=== PATIENT | male | born 1960 | race Caucasian/White ===

== ENCOUNTER → 2016-07-01 | Outpatient (CLI) | payer BC ==
--- NOTE | 2016-07-01 09:54 | RAD ---
Left lower extremity, bone length evaluation, 07/01/2016: History: Surgical planning for knee replacement Limited AP standing views of the femur and left lower leg were obtained with markers in place on the skin surface laterally to facilitate preoperative measurements. The limited exam demonstrates severe narrowing of the left knee joint with marginal spurring and subchondral sclerosis. There is lateral subluxation of the tibia relative to the distal femur.
--- NOTE | 2016-07-01 12:25 | RAD ---
MR of the left knee - Wang and Nephew protocol History: Chronic left knee pain. Preoperative planning. Technique: Sequences are obtained in accordance with the Wang and nephew protocol. 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 There is a complex small to moderate joint effusion. Small Nuñez cyst. Severe primary osteoarthritis. Medial meniscal tear. Probable lateral meniscal tear. Poorly visualized anterior cruciate ligament. Electronically signed by: Aurelio Townsend MD (Jul 01, 2016 12:24:13)
== END | disposition home or self-care (01) ==
LOC: RAD 12:32
PROVIDERS: ATTEND Orthopaedic Surgery Sports Medicine
DX: M17.12 Unilateral primary osteoarthritis, left knee (principal)
CPT/HCPCS: 73721; 77073

== ENCOUNTER → 2016-07-14 | Outpatient (CLI) | payer BC ==
[~2016-07-14] MED LIST: ALLO300T PO; CELE-20 PO; IRBE150T3 PO; RIVA20TA2 PO; TADA2.5T PO; TEST1.25 TD
[2016-07-14 09:46] LABS: ALBUMIN 3.7 g/dL (3.4-5.0); CALCIUM 8.6 mg/dL (8.5-10.1); CREATININE 1.1 mg/dL (0.7-1.3); GFR 68.8; POTASSIUM 4.2 mmol/L (3.5-5.1)
[2016-07-14 09:53] LABS: BASO # 0.1 x10^3/uL (0.0-0.2); BASO % 1 % (0-3); EOS % 2 % (0-3); HEMATOCRIT 46.8 % (39.0-53.0); HEMOGLOBIN 15.5 g/dL (13.0-17.5); LYMPH # 1.7 x10^3/uL (1.0-4.8); LYMPH % 33 % (24-48); MEAN CORPUSCULAR HEMOGLOBIN 32 pg (25-35); MEAN CORPUSCULAR HGB CONC 33 g/dL (31-37); MEAN CORPUSCULAR VOLUME 97 fL (79-100); MONO % 7 % (0-9); NEUT % 57 % (31-73); PLATELET COUNT 195 x10^3/uL (140-400); RED BLOOD COUNT 4.82 x10^6/uL (4.30-5.70); RED CELL DISTRIBUTION WIDTH 15.5 % (11.5-14.5); WHITE BLOOD COUNT 5.3 x10^3/uL (4.0-11.0)
[2016-07-14 10:06] LABS: PROTHROMBIN TIME PATIENT 12.5 SEC (11.7-14.0)
[2016-07-14 11:28] LABS: BILIRUBIN,URINE NEGATIVE (NEG); GLUCOSE,URINE NEGATIVE (NEG); NITRITE,URINE NEGATIVE (NEG); PH,URINE 5.5; PROTEIN,URINE NEGATIVE (NEG-TRACE); UROBILINOGEN,URINE 0.2 mg/dL (0.2 mg/dL)
[2016-07-14 11:48] LABS: BACTERIA,URINE 0 /HPF (0-FEW); RBC,URINE 0 /HPF (0-2); SQUAMOUS EPITHELIAL CELL,UR FEW /LPF; WBC,URINE 0 /HPF (0-4)
--- NOTE | 2016-07-14 12:43 | EKG ---
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
--- NOTE | 2016-07-14 17:11 | RAD ---
PA and lateral chest radiographs 07/14/2016 Clinical history: Preop evaluation prior to left knee replacement. 2 PA and a lateral digital radiographs of the chest were obtained. No previous studies are available for comparison. The cardiac silhouette is normal in size. The thoracic aorta is mildly tortuous. Areas of probable scarring are seen involving both lower lobes. No acute pulmonary infiltrate is seen. No pleural effusion or pneumothorax is noted. Degenerative changes are seen involving the thoracic spine. Impression: No acute abnormality is seen.
== END | disposition home or self-care (01) ==
LOC: SURGPAT 12:20
PROVIDERS: ATTEND Orthopaedic Surgery Sports Medicine
DX: Z01.818 Encounter for other preprocedural examination (principal); I10 Essential (primary) hypertension; M17.12 Unilateral primary osteoarthritis, left knee; M47.894 Other spondylosis, thoracic region
CPT/HCPCS: 36415; 71020; 80048; 81001; 82040; 85027; 85610; 85651; 85730; 87641; 93005

== ENCOUNTER 2016-07-28 05:42 | Inpatient (IN) | payer BC ==
[2016-07-28] VITALS (10 sets, daily range): BP systolic 113–136; BP diastolic 66–84
[~2016-07-28] VITALS: Ht 180.3 cm; Wt 136.1 kg
[2016-07-28] MEDS ORDERED: MORPHINE SULFATE 5 MG, KETOROLAC TROMETHAMINE 30 MG, ROPIVacaine 0.5% PF 60 ML, EPINEPH... INT ART ONE ×5 (06:00)
[2016-07-28] MEDS ORDERED: CELECOXIB 200 MG CAPSULE. PO PRN (06:00)
[2016-07-28] MEDS: HYDROCODONE/APAP 7.5/325MG TABLET. PO PRN ×3 (06:58→11:08)
[2016-07-28] MEDS ORDERED: fentaNYL PF VIAL 100 MCG/2 ML VIAL IV PRN ×4 (07:00→07:15)
[2016-07-28] MEDS ORDERED: PROCHLORPERAZINE 10 MG/2 ML VIAL. IV PRN ×2 (07:00→07:15)
[2016-07-28] MEDS ORDERED: ONDANSETRON PF 4 MG/2 ML VIAL. IV PRN (07:00)
[2016-07-28] MEDS ORDERED: IV RINGERS,LACTATED 1000ML 1,000 ML IV SCH (07:00)
[2016-07-28] MEDS ORDERED: HYDROmorphone 2 MG/ML VIAL IV PRN (07:00)
[2016-07-28] MEDS ORDERED: MORPHINE SULFATE 2 MG/ML DISP.SYRIN. IV PRN ×2 (07:00→07:15)
[2016-07-28] MEDS ORDERED: LIDOCAINE 1% 1 ML SYRINGE. ID PRN (07:00)
[2016-07-28] MEDS ORDERED: fentaNYL PF VIAL 100 MCG/2 ML VIAL ONE (07:06)
[2016-07-28] MEDS ORDERED: ROCURONIUM 50 MG/5 ML VIAL. ONE (07:06)
[2016-07-28] MEDS ORDERED: LIDOCAINE 2% 100 MG/5 ML SYRINGE. ONE (07:06)
[2016-07-28] MEDS ORDERED: FAMOTIDINE 20 MG/2 ML VIAL ONE (07:07)
[2016-07-28] MEDS ORDERED: PROPOFOL 20 ML IV ONE (07:07)
[2016-07-28] MEDS ORDERED: DEXAMETHASONE SOD PHOS 20 MG/5 ML VIAL. ONE (07:07)
[2016-07-28] MEDS: IV DEXTROSE 5 %-0.45 % NACL 1,000 ML IV SCH ×3 (07:09→16:41)
--- NOTE | 2016-07-28 07:13 | PDOC ---
BRIEF OPERATIVE NOTE Date: Jul 28, 2016 Pre-Op Diagnosis L knee DJD Post-Op Diagnosis same Procedure Performed L TKA Surgeon Bud Ventura Anesthesia Type: General, Local Blood Loss 50mL Complications none SHANICE RONQUILLO II, MD Jul 28, 2016 07:13
[2016-07-28] MEDS ORDERED: MORPHINE SULFATE 10 MG/ML VIAL. IV PRN (07:15)
[2016-07-28] MEDS ORDERED: PROCHLORPERAZINE 5 MG TABLET. PO PRN (07:15)
[2016-07-28] MEDS ORDERED: HYDROCODONE/APAP 7.5/325MG TABLET. PO PRN (07:15)
[2016-07-28] MEDS ORDERED: CALCIUM CARBONATE 500 MG TAB.CHEW PO PRN (07:15)
[2016-07-28] MEDS ORDERED: OXYCODONE/APAP 5/325 TABLET. PO PRN (07:15)
[2016-07-28] MEDS ORDERED: 0.9 % SODIUM CHLORIDE 10 ML DISP.SYRIN. IV PRN (07:15)
[2016-07-28] MEDS ORDERED: METOCLOPRAMIDE HCL 10 MG/2 ML VIAL. IV PRN (07:15)
[2016-07-28] MEDS ORDERED: MORPHINE SULFATE 4 MG/ML DISP.SYRIN. IV PRN ×2 (07:15)
[2016-07-28] MEDS ORDERED: ZOLPIDEM 5 MG TABLET. PO PRN (07:15)
[2016-07-28] MEDS ORDERED: diphenhydrAMINE 50 MG/ML VIAL IV PRN (07:15)
[2016-07-28] MEDS ORDERED: ACETAMINOPHEN 325 MG TABLET. PO PRN (07:15)
[2016-07-28] MEDS ORDERED: DEXTROSE 50% 25 GM / 50ML DISP.SYRIN. IV PRN (07:15)
[2016-07-28] MEDS ORDERED: TRAMADOL 50 MG TABLET. PO PRN ×2 (07:15)
[2016-07-28] MEDS ORDERED: MORPHINE SULFATE 10 MG/ML VIAL. ONE (07:51)
[2016-07-28] MEDS ORDERED: 0.9 % SODIUM CHLORIDE 50 ML VIAL. IJ ONE (07:51)
[2016-07-28] MEDS ORDERED: PHENYLEPHRINE in 0.9% NACL PF 1 MG/10 ML DISP.SYRIN. IV ONE (07:53)
[2016-07-28] MEDS ORDERED: LABETALOL 20 MG/4 ML DISP.SYRIN. ONE (08:01)
[2016-07-28] MEDS ORDERED: hydrALAZINE 20 MG/ML VIAL. ONE (08:16)
[2016-07-28] MEDS ORDERED: GLYCOPYRROLATE 1 MG/5 ML VIAL. ONE (08:59)
[2016-07-28] MEDS ORDERED: NEOSTIGMINE METHYLSULFATE 5 MG/5 ML SYRINGE. ONE (08:59)
[2016-07-28] MEDS ORDERED: ONDANSETRON PF 4 MG/2 ML VIAL. ONE (09:00)
[2016-07-28] MEDS ORDERED: TADALAFIL 2.5 MG PO SCH (09:00)
[2016-07-28] MEDS ORDERED: TESTOSTERONE TD SCH (09:00)
[2016-07-28] MEDS: LOSARTAN POTASSIUM 50 MG TABLET. PO SCH (09:00)
[2016-07-28] MEDS ORDERED: DESFLURANE > 120 MINUTES IH ONE (09:45)
--- NOTE | 2016-07-28 10:32 | RAD ---
Left knee, 2 views, 07/28/2016: History: Postop evaluation A total knee prosthesis has been inserted in satisfactory position. A surgical drain overlie the operative site anteriorly. There is no evidence of a retained surgical instrument, needle or radiopaque sponge on these 2 views. IMPRESSION: No significant postoperative abnormality is detected.
[2016-07-28] MEDS: ALLOPURINOL 300 MG TABLET. PO SCH (12:00)
[2016-07-28] MEDS ORDERED: chlordiazePOXIDE HCL 25 MG CAPSULE PO PRN (12:45)
--- NOTE | 2016-07-28 13:17 | OP ---
DATE OF SURGERY: 07/28/2016 SURGEON: Ajay Ronquillo MD. DIALYSIS NURSE: Gris Ventura. ANESTHESIA: General. PREOPERATIVE DIAGNOSIS: Advanced left knee degenerative joint disease. POSTOPERATIVE DIAGNOSIS: Advanced left knee degenerative joint disease. PROCEDURE PERFORMED: Left total knee arthroplasty. ESTIMATED BLOOD LOSS: 50 mL. TOURNIQUET TIME: 67 minutes. COMPONENTS INSERTED: 1. A Wang and Nephew size-8 left Journey II Oxinium femoral component. 2. A size-6 left Journey nonporous tibial baseplate. 3. An 11-mm thick trial articular insert. 4. A 26-mm biconvex patella. COMPLICATIONS: None. REASON FOR PROCEDURE: The patient is a very pleasant 56-year-old gentleman with advanced and severe left or bilateral degenerative knee joint disease. His left was more painful than his right. He had failed conservative therapy such as injections, anti-inflammatories, and exercise program, and therefore, we had discussion of risks, benefits, and alternatives of proceeding with the above surgery, and he elected to proceed. DESCRIPTION OF PROCEDURE: The patient was greeted in the preoperative area by myself. Correct extremity was marked and verified. He was taken to the Operative Suite, and antibiotics were started en route. Once in the OR, he was transferred gently supine to the OR table and had successful induction of general anesthesia. We then secured him to the bed. We then proceeded to place a nonsterile tourniquet to his left thigh and a bolster at his left hip and attached our footplate goins for Higgins leg goins. We then proceeded to prep and drape the left lower extremity in our usual sterile fashion including an Ioban sandwich and then conducted a standard preoperative timeout. After this, I palpated and marked surface anatomy and kendy a line for my planned anterior midline skin incision and then exsanguinated the extremity with an Esmarch and insufflated the tourniquet to 300 mmHg. I then made my skin incision with a scalpel and dissected down to identify his extensor mechanism including quadriceps tendon proximally, medial border of his patella, and patellar tendon and tibial tubercle distally. I used electrocautery to cauterize bleeders. I then performed a standard medial parapatellar arthrotomy. I then incised the anterior horns of both menisci and bluntly dissected the fat pad off the posterior aspect of the patellar tendon and protected this with an Army-Melcher[place] and excised the fat pad. I then performed my medial release and performed a generous medial release given his disease. After this, I used an osteotome and a notch to expose cruciates and then excised the cruciate ligaments. I then placed my Z retractors along the femoral condyles, followed by pinning my Visionaire cutting block into place. I then performed my distal femoral cut. I then removed this cutting block and impacted my 5 in 1 cutting block into position and secured it with threaded pins and made my respective cuts for that cutting block. I delivered the loose bony ends from there, and later I removed osteophytes from the posterior condyles. After this, I placed my pickle fork retractor, and I flexed his knee and subluxed the tibia anteriorly using an extramedullary tibial cutting guide. I pinned into place and made my proximal tibial cut. After this, I delivered the loose bony pieces from the operative field with peripheral electrocautery. I then brought the knee into extension and placed a spacer block and a drop dexter confirming good alignment and stability. After this, I excised the meniscal tissue leaving a rim peripherally for identification. I then brought the knee back into flexion and replaced my retractors and sized for my tibial component referencing the medial third tibial tubercle. After this, I pinned this into place and then drilled and punched for my fins. I then directed my attention to the femur and placed my trial femoral component followed by performing my box cuts. I then placed a trial Cam followed by the trial polyethylene. The 9 was a little too loose. He did hyperextend his knee. Therefore, I created to a size 11 which gave great range of motion, 0-140 degrees, and his knee was stable to varus and valgus into extension and into flexion. I then directed my attention to the patella and sized for 26 and clamped and reamed for this. I then trialed the 26 patellar button and noted excellent patellar tracking. I then removed all trial components and then thoroughly irrigated out the operative field and bone ends. I then cemented in place my tibial component followed by my femoral component and removed all excess bone cement. I then placed my trial articular insert, and the cement was allowed to polymerize with the leg in extension and the trial poly in place. I then clamped my patellar button into place with cement. I then injected my periarticular mixture into the gagan-incisional and pericapsular soft tissues. After the cement hardened, the tourniquet was let down. Bleeders were cauterized. There was a fair amount of oozing, and so I elected to place a one-eighth inch Hemovac exiting superolaterally from the knee. We then closed the arthrotomy with a simple interrupted #1 Vicryl with the exception of a [id number] proximally. I tested the arthrotomy closure in flexion and noted no extravasation of blood. An inverted interrupted 2-0 in a multilayer fashion was used for subcutaneous tissue and then a 4-0 Monocryl in running subcuticular fashion was used for the skin. After this, the leg was cleansed and dried, and sterile dressing was applied. He tolerated surgery well. No complications. Prior to completion of wound closure, all counts were reported correct x 2. At the conclusion of surgery, the patient was awakened from anesthesia, transferred gently supine to the hospital bed and taken to PACU in stable and extubated condition. Postoperative plan is to [facility] and antibiotic prophylaxis. We will resume his Xarelto. He will start PT as well. AJAY RONQUILLO MD DR: PAULETTE/pako JOB#: [id number] / [id number] LUKE
[2016-07-28] MEDS: SENNOSIDES/DOCUSATE 8.6/50MG TABLET. PO SCH (14:46)
[2016-07-28] MEDS: MULTIVITAMIN with MINERAL TABLET. PO SCH (14:46)
[2016-07-28] MEDS: OXYCODONE/APAP 7.5/325 TABLET. PO PRN ×2 (14:48→18:51)
[2016-07-28] MEDS: MULTIVIT INFUSN,ADULT 4,VIT K 10 ML, THIAMINE 100 MG, FOLIC ACID 1 MG in IV NORMAL SALI... IV SCH (14:48)
[2016-07-28] MEDS: FERROUS SULFATE 325 MG TABLET. PO SCH (17:19)
--- NOTE | 2016-07-28 20:12 | PDOC ---
GENERAL General: see dictated consult. Problems: VITAL SIGNS Vital Signs: Vital Signs Date Time Temp Pulse Resp B/P Pulse Ox O2 Delivery O2 Flow Rate FiO2 07/28/16 19:10 97.7 95 18 117/78 94 Nasal Cannula 3.5 97.7 ALLERGIES Allergies: Allergies Coded Allergies Type Severity Reaction Last Updated Verified No Known Medication Allergies Allergy Unknown 07/28/16 Yes shrimp Adverse Reaction Intermediate Nausea and Vomiting 07/28/16 Yes MEDS Medications: Current Medications Medications (Trade) Dose Ordered Sig/Porter Start Time Stop Time Status Last Admin Dose Admin Acetaminophen (Tylenol) 650 mg PRN Q4HRS PRN 07/28/16 07:15 Acetaminophen/ Hydrocodone Bitart 2 tab 2 tab 1X PREOP PRN 07/28/16 06:00 07/28/16 18:00 DC 07/28/16 06:58 2 TAB Acetaminophen/ Hydrocodone Bitart (Lortab 10/325) 1 tab PRN Q3HRS PRN 07/28/16 07:15 Acetaminophen/ Hydrocodone Bitart (Lortab 7.5/325) 1 tab PRN Q3HRS PRN 07/28/16 07:15 Allopurinol (Zyloprim) 300 mg DAILY 07/28/16 12:00 Bisacodyl (Dulcolax Supp) 10 mg 1X PRN PRN 07/29/16 16:00 07/30/16 15:59 Calcium Carbonate/ Glycine (Tums) 500 mg PRN QID PRN 07/28/16 07:15 Cefazolin Sodium (Ancef 1gm Ivpb For Omni) 50 ml @ As Directed STK-MED ONCE 07/28/16 07:47 07/28/16 07:48 DC Cefazolin Sodium 3 gm/Sodium Chloride 100 ml @ 200 mls/hr Q6H 07/28/16 13:00 07/29/16 01:29 07/28/16 14:46 200 MLS/HR Cefazolin Sodium/ Dextrose (Ancef 2gm Premix) 50 ml @ 100 mls/hr 1X PREOP PRN 07/28/16 06:00 07/28/16 18:00 DC 07/28/16 07:36 100 MLS/HR Cefazolin Sodium/ Sodium Chloride (Ancef/Iv Sodium Chloride 0.9% 100ml) 100 ml @ 200 mls/hr Q6H 07/28/16 07:15 07/28/16 11:10 DC Celecoxib (Celebrex) 400 mg 1X PREOP PRN 07/28/16 06:00 07/28/16 18:00 DC 07/28/16 06:58 400 MG Celecoxib 200 mg 200 mg BID 07/28/16 21:00 Chlordiazepoxide (Librium) 50 mg PRN Q1HR PRN 07/28/16 12:45 Desflurane 90 ml 90 ml STK-MED ONCE 07/28/16 09:45 07/28/16 09:46 DC Dexamethasone Sodium Phosphate (Decadron) 20 mg STK-MED ONCE 07/28/16 07:07 07/28/16 07:08 DC Dextrose 12.5 gm 12.5 gm PRN Q15MIN PRN 07/28/16 07:15 Dextrose/Sodium Chloride (Iv D5% - 1/2 NS) 1,000 ml @ 100 mls/hr Q10H 07/28/16 07:09 07/28/16 11:43 100 MLS/HR Diphenhydramine HCl (Benadryl) 25 mg PRN Q6HRS PRN 07/28/16 07:15 Famotidine 20 mg 20 mg STK-MED ONCE 07/28/16 07:07 07/28/16 07:08 DC Fentanyl Citrate (Fentanyl 2ml Vial) 50 mcg PRN Q1HR PRN 07/28/16 07:15 07/28/16 11:42 50 MCG Ferrous Sulfate (Feosol) 325 mg BIDWMEALS 07/28/16 17:00 07/28/16 17:19 325 MG Glycopyrrolate (Robinul) 1 mg STK-MED ONCE 07/28/16 08:59 07/28/16 09:00 DC Hydralazine HCl (Apresoline) 20 mg STK-MED ONCE 07/28/16 08:16 07/28/16 08:17 DC Hydromorphone HCl (Dilaudid) 0.5 mg PRN Q10MIN PRN 07/28/16 07:00 07/29/16 06:59 Labetalol HCl (Normodyne) 20 mg STK-MED ONCE 07/28/16 08:01 07/28/16 08:02 DC Lactated Ringer's (Iv Lactated Ringers) 1,000 ml @ 30 mls/hr Q24H 07/28/16 07:00 07/28/16 18:59 DC 07/28/16 06:57 30 MLS/HR Lidocaine HCl (Lidocaine HCl 2% Abboject) 100 mg STK-MED ONCE 07/28/16 07:06 07/28/16 07:07 DC Losartan Potassium (Cozaar) 50 mg DAILY 07/28/16 09:00 Magnesium Hydroxide (Milk Of Magnesia) 2,400 mg 1X PRN PRN 07/29/16 06:00 07/30/16 05:59 Metoclopramide HCl (Reglan) 10 mg PRN Q4HRS PRN 07/28/16 07:15 Morphine Sulfate 10 mg STK-MED ONCE 07/28/16 07:51 07/28/16 07:52 DC Morphine Sulfate 1 mg 1 mg PRN Q10MIN PRN 07/28/16 07:00 07/29/16 06:59 07/28/16 10:02 2 MG Morphine Sulfate/ Ketorolac Tromethamine/ Ropivacaine/ Epinephrine HCl/ Sodium Chloride (Morphine 5mg Syringe/Toradol/ Naropin 0.5%/ Adrenalin/Iv Sodium Chloride 0.9% 100ml) 100.5 ml @ 100.5 mls/ hr 1X PERIOP ONCE 07/28/16 06:00 07/28/16 06:59 DC 07/28/16 07:54 Multivitamins (Thera M Plus) 1 tab DAILY 07/28/16 12:00 07/28/16 14:46 1 TAB Multivitamins/ Thiamine HCl/ Folic Acid/Sodium Chloride (Infuvite Adult/ Iv Sodium Chloride 0.9% 1000ml Bag) 1,011.2 ml @ 100 mls/ hr DAILY 07/28/16 13:00 08/03/16 12:59 07/28/16 14:48 100 MLS/HR Neostigmine Methylsulfate 5 mg STK-MED ONCE 07/28/16 08:59 07/28/16 09:00 DC Non-Formulary Medication 2.5 mg DAILY 07/28/16 09:00 07/28/16 09:00 DC Non-Formulary Medication 2 applic 2 applic DAILY 07/28/16 09:00 07/28/16 11:21 DC Ondansetron HCl (Zofran) 4 mg STK-MED ONCE 07/28/16 09:00 07/28/16 09:01 DC Oxycodone/ Acetaminophen (Percocet 5/325) 1 tab PRN Q3HRS PRN 07/28/16 07:15 Oxycodone/ Acetaminophen (Percocet 7.5/ 325) 1 tab PRN Q3HRS PRN 07/28/16 07:15 07/28/16 18:51 1 TAB Phenylephrine HCl 1 mg STK-MED ONCE 07/28/16 07:53 07/28/16 07:54 DC Prochlorperazine Edisylate (Compazine) 10 mg PRN Q4HRS PRN 07/28/16 07:15 Prochlorperazine Edisylate 5 mg 5 mg PACU PRN PRN 07/28/16 07:00 07/29/16 06:59 Prochlorperazine Maleate (Compazine) 10 mg PRN Q4HRS PRN 07/28/16 07:15 Propofol (Diprivan) 20 ml @ As Directed STK-MED ONCE 07/28/16 07:07 07/28/16 07:08 DC Rivaroxaban (Xarelto) 20 mg DAILY 07/29/16 09:00 Rocuronium [place] (Zemuron) 50 mg STK-MED ONCE 07/28/16 07:06 07/28/16 07:07 DC Senna/Docusate Sodium (Senna Plus) 1 tab DAILY 07/28/16 12:00 07/28/16 14:46 1 TAB Sodium Chloride (Normal Saline Flush) 10 ml QSHIFT PRN 07/28/16 07:15 Sodium Chloride (Sodium Chloride) 50 ml STK-MED ONCE 07/28/16 07:51 07/28/16 07:52 DC Tramadol HCl (Ultram) 100 mg PRN Q3HRS PRN 07/28/16 07:15 Zolpidem Tartrate (Ambien) 5 mg PRN QHS PRN 07/28/16 07:15 PATRICIO AMBROSE MD Jul 28, 2016 20:12
[2016-07-28] MEDS: CELECOXIB 200 MG CAPSULE. PO SCH (20:30)
[2016-07-29] MEDS: IV DEXTROSE 5 %-0.45 % NACL 1,000 ML IV SCH ×2 (03:09→13:09)
[2016-07-29 03:19] LABS: HEMATOCRIT 41.2 % (39.0-53.0); HEMOGLOBIN 13.8 g/dL (13.0-17.5)
[2016-07-29 03:28] LABS: INR 1.1 (0.8-1.1); PROTHROMBIN TIME PATIENT 13.5 SEC (11.7-14.0)
[2016-07-29 03:31] VITALS: BP 151/79
--- NOTE | 2016-07-29 05:05 | CONS ---
DATE OF CONSULTATION: 07/28/2016 CHIEF COMPLAINT AND HISTORY OF PRESENT ILLNESS: This 56-year-old white male is well known to me from follow up in the office. The patient had severe arthritis of his knees, left greater than right, and was admitted at this point in time by Dr. Farrell for total knee replacement on the left. PAST MEDICAL HISTORY: Remarkable for gout. He has low testosterone, history of benign prostatic hypertrophy. He has a history of hypertension, history of a prior DVT of left leg for which he takes Xarelto. MEDICATIONS: Brought with the patient, listed on the computer and have been addressed. ALLERGIES: He has no medication allergies, but he is ALLERGIC TO SHRIMP. SOCIAL HISTORY: He is a smoker and drinks a pint of [place] per history daily. Does not use drugs. He works at the [employer]. FAMILY HISTORY: Positive for diabetes and cardiovascular disease. REVIEW OF SYSTEMS: Remarkable for pain in his knees and otherwise no specific complaints. PHYSICAL EXAMINATION: GENERAL: He is a well-developed, well-nourished white male in no acute distress. VITAL SIGNS: Stable. He is afebrile. HEAD, EYES, EARS, NOSE, AND THROAT: Remarkable for glasses. NECK: Supple, without adenopathy or thyromegaly. CHEST: Clear to auscultation and percussion. HEART: Regular rate and rhythm without S3, S4 or murmur. ABDOMEN: Soft, nontender, without hepatosplenomegaly or masses. EXTREMITIES: Reveal osteoarthritic changes of the knees. NEUROLOGIC: He is intact. IMPRESSION: 1. End-stage osteoarthritis of the left knee. 2. Other problems listed above. PLAN: The patient has been admitted. We will follow along for medical problems as they arise. He has been seen preoperatively and is cleared for surgery. PATRICIO AMBROSE MD DR: SITA/pako JOB#: [id number] / [id number]
[2016-07-29] MEDS ORDERED: MAGNESIUM HYDROXIDE 2,400 MG/30 ML ORAL.SUSP. PO PRN (06:00)
[2016-07-29 06:30] VITALS: BP 151/87
[2016-07-29] MEDS: MULTIVITAMIN with MINERAL TABLET. PO SCH (08:15)
[2016-07-29] MEDS: SENNOSIDES/DOCUSATE 8.6/50MG TABLET. PO SCH (08:15)
[2016-07-29] MEDS: CELECOXIB 200 MG CAPSULE. PO SCH ×2 (08:15→21:00)
[2016-07-29] MEDS: ALLOPURINOL 300 MG TABLET. PO SCH (08:15)
[2016-07-29] MEDS: FERROUS SULFATE 325 MG TABLET. PO SCH ×2 (08:15→17:11)
[2016-07-29] MEDS: OXYCODONE/APAP 7.5/325 TABLET. PO PRN (08:16)
[2016-07-29] MEDS: RIVAROXABAN 10 MG TABLET. PO SCH (08:17)
[2016-07-29] MEDS: LOSARTAN POTASSIUM 50 MG TABLET. PO SCH (08:17)
[2016-07-29] MEDS: MULTIVIT INFUSN,ADULT 4,VIT K 10 ML, THIAMINE 100 MG, FOLIC ACID 1 MG in IV NORMAL SALI... IV SCH (08:28)
--- NOTE | 2016-07-29 09:28 | PDOC ---
ORTHO PROGRESS NOTES Subjective Chris tells me his knee is sore but we are help him out with pain enough. He did uses CPAP last night. His O2 sats were low yesterday, but CPAP helped with that. Vitals Vital Signs Date Time Temp Pulse Resp B/P Pulse Ox O2 Delivery O2 Flow Rate FiO2 07/29/16 08:17 84 133/71 07/29/16 08:16 Room Air 07/29/16 06:30 97.8 18 95 97.8 07/28/16 19:10 3.5 Labs Laboratory Tests Test 07/29/16 03:10 Hemoglobin 13.8g/dL (13.0-17.5) Hematocrit 41.2% (39.0-53.0) Mean Corpuscular Hemoglobin Concent 33g/dL (31-37) Prothrombin Time 13.5SEC (11.7-14.0) Prothromb Time International Ratio 1.1 (0.8-1.1) Laboratory Tests Test 07/29/16 03:10 Hemoglobin 13.8g/dL (13.0-17.5) Hematocrit 41.2% (39.0-53.0) Mean Corpuscular Hemoglobin Concent 33g/dL (31-37) Prothrombin Time 13.5SEC (11.7-14.0) Prothromb Time International Ratio 1.1 (0.8-1.1) Notes He is awake and alert and sitting in a chair. Dressings intact. Normal motor and sensation left lower extremity. Toes are warm. Assessment and Plan He will start his rehabilitation today. I do think he should use his CPAP anytime he is sleeping encouraged him to use it more frequently as well. SHANICE RONQUILLO II, MD Jul 29, 2016 09:28
[2016-07-29] MEDS: HYDROCODONE/APAP 10/325 TABLET. PO PRN ×3 (12:48→21:43)
[2016-07-29] MEDS ORDERED: BISACODYL 10 MG SUPP.RECT. PR PRN (16:00)
[2016-07-29 18:00] VITALS: BP 140/80
--- NOTE | 2016-07-29 20:35 | PDOC ---
GENERAL General: vss and afebrile. awake and alert and expected pain. Hb 13.8. back on xarelto. chest clear and heart regular. continue present. therapy encouraged. Problems: VITAL SIGNS Vital Signs: Vital Signs Date Time Temp Pulse Resp B/P Pulse Ox O2 Delivery O2 Flow Rate FiO2 07/29/16 18:00 97.9 81 20 140/80 96 Room Air 97.9 07/28/16 19:10 3.5 I & O I & O Intake and Output 07/29/16 07:00 Intake Total 2449 ml Output Total 4340 ml Balance -1891 ml Intake Oral 180 ml IV Total 1599 ml Blood Product IV Normal Saline Flush 670 ml Output Urine Total 2400 ml Drainage Total 1890 ml Estimated Blood Loss 50 ml ALLERGIES Allergies: Allergies Coded Allergies Type Severity Reaction Last Updated Verified No Known Medication Allergies Allergy Unknown 07/28/16 Yes shrimp Adverse Reaction Intermediate Nausea and Vomiting 07/28/16 Yes MEDS Medications: Current Medications Medications (Trade) Dose Ordered Sig/Porter Start Time Stop Time Status Last Admin Dose Admin Acetaminophen (Tylenol) 650 mg PRN Q4HRS PRN 07/28/16 07:15 Acetaminophen/ Hydrocodone Bitart 2 tab 2 tab 1X PREOP PRN 07/28/16 06:00 07/28/16 18:00 DC 07/28/16 06:58 2 TAB Acetaminophen/ Hydrocodone Bitart (Lortab 10/325) 1 tab PRN Q3HRS PRN 07/28/16 07:15 07/29/16 15:36 1 TAB Acetaminophen/ Hydrocodone Bitart (Lortab 7.5/325) 1 tab PRN Q3HRS PRN 07/28/16 07:15 Allopurinol (Zyloprim) 300 mg DAILY 07/28/16 12:00 07/29/16 08:15 300 MG Bisacodyl (Dulcolax Supp) 10 mg 1X PRN PRN 07/29/16 16:00 07/30/16 15:59 Calcium Carbonate/ Glycine (Tums) 500 mg PRN QID PRN 07/28/16 07:15 Cefazolin Sodium (Ancef 1gm Ivpb For Omni) 50 ml @ As Directed STK-MED ONCE 07/28/16 07:47 07/28/16 07:48 DC Cefazolin Sodium 3 gm/Sodium Chloride 100 ml @ 200 mls/hr Q6H 07/28/16 13:00 07/29/16 01:29 DC 07/29/16 05:14 200 MLS/HR Cefazolin Sodium/ Dextrose (Ancef 2gm Premix) 50 ml @ 100 mls/hr 1X PREOP PRN 07/28/16 06:00 07/28/16 18:00 DC 07/28/16 07:36 100 MLS/HR Cefazolin Sodium/ Sodium Chloride (Ancef/Iv Sodium Chloride 0.9% 100ml) 100 ml @ 200 mls/hr Q6H 07/28/16 07:15 07/28/16 11:10 DC Celecoxib (Celebrex) 400 mg 1X PREOP PRN 07/28/16 06:00 07/28/16 18:00 DC 07/28/16 06:58 400 MG Celecoxib 200 mg 200 mg BID 07/28/16 21:00 07/29/16 08:15 200 MG Chlordiazepoxide (Librium) 50 mg PRN Q1HR PRN 07/28/16 12:45 Desflurane 90 ml 90 ml STK-MED ONCE 07/28/16 09:45 07/28/16 09:46 DC Dexamethasone Sodium Phosphate (Decadron) 20 mg STK-MED ONCE 07/28/16 07:07 07/28/16 07:08 DC Dextrose 12.5 gm 12.5 gm PRN Q15MIN PRN 07/28/16 07:15 Dextrose/Sodium Chloride (Iv D5% - 1/2 NS) 1,000 ml @ 100 mls/hr Q10H 07/28/16 07:09 07/29/16 15:41 DC 07/28/16 11:43 100 MLS/HR Diphenhydramine HCl (Benadryl) 25 mg PRN Q6HRS PRN 07/28/16 07:15 Famotidine 20 mg 20 mg STK-MED ONCE 07/28/16 07:07 07/28/16 07:08 DC Fentanyl Citrate (Fentanyl 2ml Vial) 50 mcg PRN Q1HR PRN 07/28/16 07:15 07/28/16 11:42 50 MCG Ferrous Sulfate (Feosol) 325 mg BIDWMEALS 07/28/16 17:00 07/29/16 17:11 325 MG Glycopyrrolate (Robinul) 1 mg STK-MED ONCE 07/28/16 08:59 07/28/16 09:00 DC Hydralazine HCl (Apresoline) 20 mg STK-MED ONCE 07/28/16 08:16 07/28/16 08:17 DC Hydromorphone HCl (Dilaudid) 0.5 mg PRN Q10MIN PRN 07/28/16 07:00 07/29/16 06:59 DC Insulin Detemir (Levemir) 25 units QHS 07/29/16 21:00 Labetalol HCl (Normodyne) 20 mg STK-MED ONCE 07/28/16 08:01 07/28/16 08:02 DC Lactated Ringer's (Iv Lactated Ringers) 1,000 ml @ 30 mls/hr Q24H 07/28/16 07:00 07/28/16 18:59 DC 07/28/16 06:57 30 MLS/HR Lidocaine HCl (Lidocaine HCl 2% Abboject) 100 mg STK-MED ONCE 07/28/16 07:06 07/28/16 07:07 DC Losartan Potassium (Cozaar) 50 mg DAILY 07/28/16 09:00 07/29/16 08:17 50 MG Magnesium Hydroxide (Milk Of Magnesia) 2,400 mg 1X PRN PRN 07/29/16 06:00 07/30/16 05:59 Metoclopramide HCl (Reglan) 10 mg PRN Q4HRS PRN 07/28/16 07:15 Morphine Sulfate 10 mg STK-MED ONCE 07/28/16 07:51 07/28/16 07:52 DC Morphine Sulfate 1 mg 1 mg PRN Q10MIN PRN 07/28/16 07:00 07/29/16 06:59 DC 07/28/16 10:02 2 MG Morphine Sulfate/ Ketorolac Tromethamine/ Ropivacaine/ Epinephrine HCl/ Sodium Chloride (Morphine 5mg Syringe/Toradol/ Naropin 0.5%/ Adrenalin/Iv Sodium Chloride 0.9% 100ml) 100.5 ml @ 100.5 mls/ hr 1X PERIOP ONCE 07/28/16 06:00 07/28/16 06:59 DC 07/28/16 07:54 Multivitamins (Thera M Plus) 1 tab DAILY 4/24/17 12:00 07/29/16 08:15 1 TAB Multivitamins/ Thiamine HCl/ Folic Acid/Sodium Chloride (Infuvite Adult/ Iv Sodium Chloride 0.9% 1000ml Bag) 1,011.2 ml @ 100 mls/ hr DAILY 07/28/16 13:00 08/03/16 12:59 07/29/16 08:28 100 MLS/HR Neostigmine Methylsulfate 5 mg STK-MED ONCE 07/28/16 08:59 07/28/16 09:00 DC Non-Formulary Medication 2.5 mg DAILY 07/28/16 09:00 07/28/16 09:00 DC Non-Formulary Medication 2 applic 2 applic DAILY 07/28/16 09:00 07/28/16 11:21 DC Ondansetron HCl (Zofran) 4 mg STK-MED ONCE 07/28/16 09:00 07/28/16 09:01 DC Oxycodone/ Acetaminophen (Percocet 5/325) 1 tab PRN Q3HRS PRN 07/28/16 07:15 Oxycodone/ Acetaminophen (Percocet 7.5/ 325) 1 tab PRN Q3HRS PRN 07/28/16 07:15 07/29/16 08:16 1 TAB Phenylephrine HCl 1 mg STK-MED ONCE 07/28/16 07:53 07/28/16 07:54 DC Prochlorperazine Edisylate (Compazine) 10 mg PRN Q4HRS PRN 07/28/16 07:15 Prochlorperazine Edisylate 5 mg 5 mg PACU PRN PRN 07/28/16 07:00 07/29/16 06:59 DC Prochlorperazine Maleate (Compazine) 10 mg PRN Q4HRS PRN 07/28/16 07:15 Propofol (Diprivan) 20 ml @ As Directed STK-MED ONCE 07/28/16 07:07 07/28/16 07:08 DC Rivaroxaban (Xarelto) 20 mg DAILY 07/29/16 09:00 07/29/16 08:17 20 MG Rocuronium Muse (Zemuron) 50 mg STK-MED ONCE 07/28/16 07:06 07/28/16 07:07 DC Senna/Docusate Sodium (Senna Plus) 1 tab DAILY 07/28/16 12:00 07/29/16 08:15 1 TAB Sodium Chloride (Normal Saline Flush) 10 ml QSHIFT PRN 07/28/16 07:15 Sodium Chloride (Sodium Chloride) 50 ml STK-MED ONCE 07/28/16 07:51 07/28/16 07:52 DC Tramadol HCl (Ultram) 100 mg PRN Q3HRS PRN 07/28/16 07:15 Zolpidem Tartrate (Ambien) 5 mg PRN QHS PRN 07/28/16 07:15 LAB Lab: Laboratory Tests Test 07/29/16 03:10 Hemoglobin 13.8g/dL (13.0-17.5) Hematocrit 41.2% (39.0-53.0) Mean Corpuscular Hemoglobin Concent 33g/dL (31-37) Prothrombin Time 13.5SEC (11.7-14.0) Prothromb Time International Ratio 1.1 (0.8-1.1) APPL,PATRICIO Galvan MD Jul 29, 2016 20:35
[2016-07-29] MEDS ORDERED: INSULIN DETEMIR 300 UNITS/3 ML INSULN.PEN. SQ SCH (21:00)
[2016-07-29 23:13] VITALS: BP 166/92
[2016-07-30] MEDS: HYDROCODONE/APAP 10/325 TABLET. PO PRN ×3 (00:47→09:33)
[2016-07-30 03:27] VITALS: BP 158/89
[2016-07-30 06:18] VITALS: BP 142/93
[2016-07-30 07:09] LABS: HEMATOCRIT 40.1 % (39.0-53.0); HEMOGLOBIN 13.4 g/dL (13.0-17.5)
[2016-07-30 07:50] LABS: INR 1.1 (0.8-1.1); PROTHROMBIN TIME PATIENT 13.1 SEC (11.7-14.0)
--- NOTE | 2016-07-30 08:15 | PDOC ---
GENERAL General: vss and afebrile. awake and alert. pain level tolerable and not lot different than on admission. Hb 13.4. no reason to follow inr on xarelto. chest clear and heart regular. encouraged therapy. Problems: VITAL SIGNS Vital Signs: Vital Signs Date Time Temp Pulse Resp B/P Pulse Ox O2 Delivery O2 Flow Rate FiO2 07/30/16 06:49 20 Room Air 07/30/16 06:18 97.9 85 142/93 93 97.9 I & O I & O Intake and Output 07/30/16 06:59 Intake Total 1110 ml Output Total 80 ml Balance 1030 ml Intake Oral 1110 ml Drainage Total 80 ml # Voids 6 ALLERGIES Allergies: Allergies Coded Allergies Type Severity Reaction Last Updated Verified No Known Medication Allergies Allergy Unknown 07/28/16 Yes shrimp Adverse Reaction Intermediate Nausea and Vomiting 07/28/16 Yes MEDS Medications: Current Medications Medications (Trade) Dose Ordered Sig/Porter Start Time Stop Time Status Last Admin Dose Admin Acetaminophen (Tylenol) 650 mg PRN Q4HRS PRN 07/28/16 07:15 Acetaminophen/ Hydrocodone Bitart 2 tab 2 tab 1X PREOP PRN 07/28/16 06:00 07/28/16 18:00 DC 07/28/16 06:58 2 TAB Acetaminophen/ Hydrocodone Bitart (Lortab 10/325) 1 tab PRN Q3HRS PRN 07/28/16 07:15 07/30/16 06:49 1 TAB Acetaminophen/ Hydrocodone Bitart (Lortab 7.5/325) 1 tab PRN Q3HRS PRN 07/28/16 07:15 Allopurinol (Zyloprim) 300 mg DAILY 07/28/16 12:00 07/29/16 08:15 300 MG Bisacodyl (Dulcolax Supp) 10 mg 1X PRN PRN 07/29/16 16:00 07/30/16 15:59 Calcium Carbonate/ Glycine (Tums) 500 mg PRN QID PRN 07/28/16 07:15 Cefazolin Sodium (Ancef 1gm Ivpb For Omni) 50 ml @ As Directed STK-MED ONCE 07/28/16 07:47 07/28/16 07:48 DC Cefazolin Sodium 3 gm/Sodium Chloride 100 ml @ 200 mls/hr Q6H 07/28/16 13:00 07/29/16 01:29 DC 07/29/16 05:14 200 MLS/HR Cefazolin Sodium/ Dextrose (Ancef 2gm Premix) 50 ml @ 100 mls/hr 1X PREOP PRN 07/28/16 06:00 07/28/16 18:00 DC 07/28/16 07:36 100 MLS/HR Cefazolin Sodium/ Sodium Chloride (Ancef/Iv Sodium Chloride 0.9% 100ml) 100 ml @ 200 mls/hr Q6H 07/28/16 07:15 07/28/16 11:10 DC Celecoxib (Celebrex) 400 mg 1X PREOP PRN 07/28/16 06:00 07/28/16 18:00 DC 07/28/16 06:58 400 MG Celecoxib 200 mg 200 mg BID 07/28/16 21:00 07/29/16 21:00 200 MG Chlordiazepoxide (Librium) 50 mg PRN Q1HR PRN 07/28/16 12:45 Desflurane 90 ml 90 ml STK-MED ONCE 07/28/16 09:45 07/28/16 09:46 DC Dexamethasone Sodium Phosphate (Decadron) 20 mg STK-MED ONCE 07/28/16 07:07 07/28/16 07:08 DC Dextrose 12.5 gm 12.5 gm PRN Q15MIN PRN 07/28/16 07:15 Dextrose/Sodium Chloride (Iv D5% - 1/2 NS) 1,000 ml @ 100 mls/hr Q10H 07/28/16 07:09 07/29/16 15:41 DC 07/28/16 11:43 100 MLS/HR Diphenhydramine HCl (Benadryl) 25 mg PRN Q6HRS PRN 07/28/16 07:15 Famotidine 20 mg 20 mg STK-MED ONCE 07/28/16 07:07 07/28/16 07:08 DC Fentanyl Citrate (Fentanyl 2ml Vial) 50 mcg PRN Q1HR PRN 07/28/16 07:15 07/28/16 11:42 50 MCG Ferrous Sulfate (Feosol) 325 mg BIDWMEALS 07/28/16 17:00 07/29/16 17:11 325 MG Glycopyrrolate (Robinul) 1 mg STK-MED ONCE 07/28/16 08:59 07/28/16 09:00 DC Hydralazine HCl (Apresoline) 20 mg STK-MED ONCE 07/28/16 08:16 07/28/16 08:17 DC Hydromorphone HCl (Dilaudid) 0.5 mg PRN Q10MIN PRN 07/28/16 07:00 07/29/16 06:59 DC Insulin Detemir (Levemir) 25 units QHS 07/29/16 21:00 07/29/16 21:16 DC Labetalol HCl (Normodyne) 20 mg STK-MED ONCE 07/28/16 08:01 07/28/16 08:02 DC Lactated Ringer's (Iv Lactated Ringers) 1,000 ml @ 30 mls/hr Q24H 07/28/16 07:00 07/28/16 18:59 DC 07/28/16 06:57 30 MLS/HR Lidocaine HCl (Lidocaine HCl 2% Abboject) 100 mg STK-MED ONCE 07/28/16 07:06 07/28/16 07:07 DC Losartan Potassium (Cozaar) 50 mg DAILY 07/28/16 09:00 07/29/16 08:17 50 MG Magnesium Hydroxide (Milk Of Magnesia) 2,400 mg 1X PRN PRN 07/29/16 06:00 07/30/16 05:59 DC Metoclopramide HCl (Reglan) 10 mg PRN Q4HRS PRN 07/28/16 07:15 Morphine Sulfate 10 mg STK-MED ONCE 07/28/16 07:51 07/28/16 07:52 DC Morphine Sulfate 1 mg 1 mg PRN Q10MIN PRN 07/28/16 07:00 07/29/16 06:59 DC 07/28/16 10:02 2 MG Morphine Sulfate/ Ketorolac Tromethamine/ Ropivacaine/ Epinephrine HCl/ Sodium Chloride (Morphine 5mg Syringe/Toradol/ Naropin 0.5%/ Adrenalin/Iv Sodium Chloride 0.9% 100ml) 100.5 ml @ 100.5 mls/ hr 1X PERIOP ONCE 07/28/16 06:00 07/28/16 06:59 DC 07/28/16 07:54 Multivitamins (Thera M Plus) 1 tab DAILY 07/28/16 12:00 07/29/16 08:15 1 TAB Multivitamins/ Thiamine HCl/ Folic Acid/Sodium Chloride (Infuvite Adult/ Iv Sodium Chloride 0.9% 1000ml Bag) 1,011.2 ml @ 100 mls/ hr DAILY 07/28/16 13:00 08/03/16 12:59 07/29/16 08:28 100 MLS/HR Neostigmine Methylsulfate 5 mg STK-MED ONCE 07/28/16 08:59 07/28/16 09:00 DC Non-Formulary Medication 2.5 mg DAILY 07/28/16 09:00 07/28/16 09:00 DC Non-Formulary Medication 2 applic 2 applic DAILY 07/28/16 09:00 07/28/16 11:21 DC Ondansetron HCl (Zofran) 4 mg STK-MED ONCE 07/28/16 09:00 07/28/16 09:01 DC Oxycodone/ Acetaminophen (Percocet 5/325) 1 tab PRN Q3HRS PRN 07/28/16 07:15 Oxycodone/ Acetaminophen (Percocet 7.5/ 325) 1 tab PRN Q3HRS PRN 07/28/16 07:15 07/29/16 08:16 1 TAB Phenylephrine HCl 1 mg STK-MED ONCE 07/28/16 07:53 07/28/16 07:54 DC Prochlorperazine Edisylate (Compazine) 10 mg PRN Q4HRS PRN 07/28/16 07:15 Prochlorperazine Edisylate 5 mg 5 mg PACU PRN PRN 07/28/16 07:00 07/29/16 06:59 DC Prochlorperazine Maleate (Compazine) 10 mg PRN Q4HRS PRN 07/28/16 07:15 Propofol (Diprivan) 20 ml @ As Directed STK-MED ONCE 07/28/16 07:07 07/28/16 07:08 DC Rivaroxaban (Xarelto) 20 mg DAILY 07/29/16 09:00 07/29/16 08:17 20 MG Rocuronium [place] (Zemuron) 50 mg STK-MED ONCE 07/28/16 07:06 07/28/16 07:07 DC Senna/Docusate Sodium (Senna Plus) 1 tab DAILY 07/28/16 12:00 07/29/16 08:15 1 TAB Sodium Chloride (Normal Saline Flush) 10 ml QSHIFT PRN 07/28/16 07:15 Sodium Chloride (Sodium Chloride) 50 ml STK-MED ONCE 07/28/16 07:51 07/28/16 07:52 DC Tramadol HCl (Ultram) 100 mg PRN Q3HRS PRN 07/28/16 07:15 Zolpidem Tartrate (Ambien) 5 mg PRN QHS PRN 07/28/16 07:15 LAB Lab: Laboratory Tests Test 07/30/16 06:45 Hemoglobin 13.4g/dL (13.0-17.5) Hematocrit 40.1% (39.0-53.0) Mean Corpuscular Hemoglobin Concent 33g/dL (31-37) Prothrombin Time 13.1SEC (11.7-14.0) Prothromb Time International Ratio 1.1 (0.8-1.1) PATRICIO AMBROSE MD Jul 30, 2016 08:15
[2016-07-30] MEDS: MULTIVIT INFUSN,ADULT 4,VIT K 10 ML, THIAMINE 100 MG, FOLIC ACID 1 MG in IV NORMAL SALI... IV SCH ×2 (09:00→22:58)
[2016-07-30] MEDS: FERROUS SULFATE 325 MG TABLET. PO SCH ×2 (09:27→17:31)
[2016-07-30] MEDS: ALLOPURINOL 300 MG TABLET. PO SCH (09:27)
[2016-07-30] MEDS: RIVAROXABAN 10 MG TABLET. PO SCH (09:27)
[2016-07-30] MEDS: CELECOXIB 200 MG CAPSULE. PO SCH ×2 (09:27→21:16)
[2016-07-30] MEDS: SENNOSIDES/DOCUSATE 8.6/50MG TABLET. PO SCH (09:27)
[2016-07-30] MEDS: MULTIVITAMIN with MINERAL TABLET. PO SCH (09:27)
[2016-07-30] MEDS: LOSARTAN POTASSIUM 50 MG TABLET. PO SCH (09:30)
--- NOTE | 2016-07-30 11:58 | DISCH ---
DISCHARGE INSTRUCTIONS Condition on Discharge Condition on Discharge: Stable Activity After Discharge Activity Instructions for Disc: Other, see below Bathing Instructions: Shower-keep dressing dry Weight Bearing Status after Di: As tolerated Diet after Discharge Diet after Discharge: Regular Wound Incision Care Wound/Incision Care: Ice to area for comfort, Keep wound/cast CDI, Do not change dressing Contacting the DRAmy after DC Call your doctor for: Concerns you may have Follow-Up Follow up with: Maximino fairchild 2wks SHANICE RONQUILLO II, MD Jul 30, 2016 11:58
--- NOTE | 2016-07-30 12:01 | PDOC ---
ORTHO PROGRESS NOTES Subjective Pain tolerable. Slow progress with PT. CPAP intermittently. No abd complaints Vitals Vital Signs Date Time Temp Pulse Resp B/P Pulse Ox O2 Delivery O2 Flow Rate FiO2 07/30/16 09:33 93 Room Air 07/30/16 09:30 94 154/86 07/30/16 06:49 20 07/30/16 06:18 97.9 97.9 Labs Laboratory Tests Test 07/29/16 03:10 07/30/16 06:45 Hemoglobin 13.8g/dL (13.0-17.5) 13.4g/dL (13.0-17.5) Hematocrit 41.2% (39.0-53.0) 40.1% (39.0-53.0) Mean Corpuscular Hemoglobin Concent 33g/dL (31-37) 33g/dL (31-37) Prothrombin Time 13.5SEC (11.7-14.0) 13.1SEC (11.7-14.0) Prothromb Time International Ratio 1.1 (0.8-1.1) 1.1 (0.8-1.1) Laboratory Tests Test 07/30/16 06:45 Hemoglobin 13.4g/dL (13.0-17.5) Hematocrit 40.1% (39.0-53.0) Mean Corpuscular Hemoglobin Concent 33g/dL (31-37) Prothrombin Time 13.1SEC (11.7-14.0) Prothromb Time International Ratio 1.1 (0.8-1.1) Notes A and A in chair dressing intact remains NVI LLE Assessment and Plan home tomorrow cont PT/OT SHANICE RONQUILLO II, MD Jul 30, 2016 12:01
[2016-07-30] MEDS: OXYCODONE/APAP 7.5/325 TABLET. PO PRN ×3 (12:53→21:17)
[2016-07-30 18:29] VITALS: BP 149/86
[2016-07-31] MEDS: OXYCODONE/APAP 7.5/325 TABLET. PO PRN ×3 (01:35→12:44)
[2016-07-31 05:23] VITALS: BP 149/82
[2016-07-31 07:13] LABS: HEMATOCRIT 40.9 % (39.0-53.0); HEMOGLOBIN 13.5 g/dL (13.0-17.5)
[2016-07-31 07:23] LABS: INR 1.1 (0.8-1.1); PROTHROMBIN TIME PATIENT 13.7 SEC (11.7-14.0)
--- NOTE | 2016-07-31 07:43 | DISCH ---
DISCHARGE WITH HOME HEALTH DISCHARGE INFORMATION: Final Diagnosis: Problems Medical Problems: (1) Arthritis of left knee Status: Acute Condition on Discharge: Stable HOME HEALTH: Face to Face: I certify this patient is under my care and that I, or a nurse practitioner or physician's showroom sales assistant working with me, had a face to face encounter that meets the physician face to face encounter requirements with this patient on [Date]. Medical Condition(s): S/P Joint Replacement Prison For: Other: (blood draws for INR) Physical Therapy For: Evalulation/Treatment Occupational Therapy For: Evaluation/Treatment Patient meets Homebound Statu: Limited distance walking FOLLOW-UP: Follow up with: Bud in 2wks Follow Up With: Bryson CERTIFICATION STATEMENT: Certification Statement: Certification Statement: Based on the above finding, I certify that this patient is confined to the home and needs intermittent usp care, physical therapy and/or speech therapy, or continues to need occupational therapy.~ This patient is under my care, and I have initiated the establishment of the plan of care.~ This patient will be followed by myself or a community physician who will periodically review the plan of care. SHANICE RONQUILLO II, MD Jul 31, 2016 07:43
--- NOTE | 2016-07-31 07:44 | PDOC ---
ORTHO PROGRESS NOTES Subjective Pain tolerable. No complaints Vitals Vital Signs Date Time Temp Pulse Resp B/P Pulse Ox O2 Delivery O2 Flow Rate FiO2 07/31/16 05:23 97.8 82 20 149/82 94 Room Air 97.8 Labs Laboratory Tests Test 07/30/16 06:45 07/31/16 07:00 Hemoglobin 13.4g/dL (13.0-17.5) 13.5g/dL (13.0-17.5) Hematocrit 40.1% (39.0-53.0) 40.9% (39.0-53.0) Mean Corpuscular Hemoglobin Concent 33g/dL (31-37) 33g/dL (31-37) Prothrombin Time 13.1SEC (11.7-14.0) Prothromb Time International Ratio 1.1 (0.8-1.1) Laboratory Tests Test 07/31/16 07:00 Hemoglobin 13.5g/dL (13.0-17.5) Hematocrit 40.9% (39.0-53.0) Mean Corpuscular Hemoglobin Concent 33g/dL (31-37) Notes A and A in chair LLE: exam unchanged dressing intact Assessment and Plan HHC, PT/OT coumadin x 4 wks SHANICE RONQUILLO II, MD Jul 31, 2016 07:44
--- NOTE | 2016-07-31 09:25 | PATHOLOGY ---
PATHOLOGY REPORT * * * * * * * * FINAL DIAGNOSIS: Bone, "left knee tissue", removal: - Degenerative osteoarthritis. (SKM:csd; d/t: 07/30/2016) REPORT ELECTRONICALLY SIGNED BY: Nya Bishop M.D. DATE/TIME: 07/31/2016 09:24 * * * * * * * * GROSS PATHOLOGY: Received in formalin labeled "Chris Mathur, left knee tissue," are multiple segments of bone, including tibial plateau, measuring 10.7 x 9.5 x 3.1 cm in aggregate dimensions admixed with soft tissue; meniscus is present. The specimen shows focal eburnation of the articular surfaces. Nurse Practical sections of bone and soft tissue are submitted in cassette A1, following decalcification. (CAA; 07/29/2016) INITIAL CPT CODE(S): A; 32969, 92844 Professional services performed [place] [facility] [place] [address] Technical services performed by [facility] at [address] [place] [address], [place] [address]. SPECIMEN(S) RECEIVED: A.Left knee tissue CLINICAL HISTORY: Left knee OA PATIENT: CHRIS MATHUR L 2 /AGE: 1 1960 (Age: 56) PATIENT #: [id number] ALT CASE #: SPECIMEN COLLECTION DATE: 07/28/2016 SPECIMEN RECEIVED DATE: 07/28/2016 [facility] - [address] [place] [address] - PHONE: [phone] * * * END OF REPORT * * *
[2016-07-31] MEDS: ALLOPURINOL 300 MG TABLET. PO SCH (09:32)
[2016-07-31] MEDS: MULTIVITAMIN with MINERAL TABLET. PO SCH (09:32)
[2016-07-31] MEDS: RIVAROXABAN 10 MG TABLET. PO SCH (09:32)
[2016-07-31] MEDS: SENNOSIDES/DOCUSATE 8.6/50MG TABLET. PO SCH (09:33)
[2016-07-31] MEDS: CELECOXIB 200 MG CAPSULE. PO SCH (09:33)
[2016-07-31] MEDS: FERROUS SULFATE 325 MG TABLET. PO SCH (09:33)
[2016-07-31] MEDS: LOSARTAN POTASSIUM 50 MG TABLET. PO SCH (09:35)
--- NOTE | 2016-07-31 10:04 | PDOC3 ---
Discharge Summary Visit Information Date of Admission: Jul 28, 2016 Date of Discharge: Jul 31, 2016 Admitting Diagnosis: Advanced Left knee DJD Final Diagnosis Problems Medical Problems: (1) Arthritis of left knee Status: Acute Brief Hospital Course Allergies Allergies Coded Allergies Type Severity Reaction Last Updated Verified No Known Medication Allergies Allergy Unknown 07/28/16 Yes shrimp Adverse Reaction Intermediate Nausea and Vomiting 07/28/16 Yes Vital Signs Vital Signs Date Time Temp Pulse Resp B/P Pulse Ox O2 Delivery O2 Flow Rate FiO2 07/31/16 09:35 98 150/89 07/31/16 08:25 Room Air 07/31/16 05:23 97.8 20 94 97.8 Lab Results Laboratory Tests Test 07/30/16 06:45 07/31/16 07:00 Hemoglobin 13.4g/dL (13.0-17.5) 13.5g/dL (13.0-17.5) Hematocrit 40.1% (39.0-53.0) 40.9% (39.0-53.0) Mean Corpuscular Hemoglobin Concent 33g/dL (31-37) 33g/dL (31-37) Prothrombin Time 13.1SEC (11.7-14.0) 13.7SEC (11.7-14.0) Prothromb Time International Ratio 1.1 (0.8-1.1) 1.1 (0.8-1.1) Laboratory Tests Test 07/31/16 07:00 Hemoglobin 13.5g/dL (13.0-17.5) Hematocrit 40.9% (39.0-53.0) Mean Corpuscular Hemoglobin Concent 33g/dL (31-37) Prothrombin Time 13.7SEC (11.7-14.0) Prothromb Time International Ratio 1.1 (0.8-1.1) Brief Hospital Course Mr. Dawkins is a 56 old male who presented to my outpatient orthopedic surgery clinic with complaints of severe and progressive pain that failed conservative therapies including injections. We had a discussion of the risks, benefits, alternatives to total knee arthroplasty and he elected to proceed. He tolerated surgery well cover well from anesthesia in the PACU. He was then taken to the joint Center for care and observation. He did receive PT, OT, DVT and antibiotic prophylaxis. He recovered well from surgery and remained hemodynamically stable and afebrile throughout the hospitalization. Pain was controlled on oral pain medicine at the time of discharge. Good progress was made with therapy throughout the hospitalization, and activities of daily living were accomplished by the patient. The incision was clean dry and intact and the operative extremity had normal motor and sensation. Discharge Information Condition at Discharge: Stable Follow Up: Weeks Disposition/Orders: D/C to Home Scheduled Allopurinol (Allopurinol) 300 MG PO DAILY (Reported) Celecoxib (Celecoxib) 200 MG PO DAILY (Reported) Irbesartan (Irbesartan) 150 MG PO DAILY (Reported) Rivaroxaban (Xarelto) 20 MG PO DAILY (Reported) Tadalafil (Cialis) 2.5 MG PO DAILY (Reported) Testosterone (Androgel) 2 APPLIC TD DAILY (Reported) Patient Instructions Patient Instructions He will be discharged home. We will get him started on outpatient therapy as soon as we are able. The patient will be on Coumadin for a month. He can weight-bear as tolerated. Worrisome signs and symptoms that should prompt a phone call to my office were discussed. We'll see him back in 2 weeks, sooner should a problem arise. SHANICE RONQUILLO II, MD Jul 31, 2016 10:04
[2016-07-31] MEDS ORDERED: OXYC-244 PO (12:14)
--- NOTE | 2016-07-31 14:52 | PDOC ---
GENERAL General: vss and afebrile. Hb 13.5. in therapy and tolerating same. exam stable. anticipated dc later today. will see in office in next week or so. Problems: VITAL SIGNS Vital Signs: Vital Signs Date Time Temp Pulse Resp B/P Pulse Ox O2 Delivery O2 Flow Rate FiO2 07/31/16 09:35 98 150/89 07/31/16 08:25 Room Air 07/31/16 05:23 97.8 20 94 97.8 I & O I & O Intake and Output 07/31/16 07:00 Intake Total 960 ml Balance 960 ml Intake Oral 960 ml # Voids 3 # Bowel Movements 1 ALLERGIES Allergies: Allergies Coded Allergies Type Severity Reaction Last Updated Verified No Known Medication Allergies Allergy Unknown 07/28/16 Yes shrimp Adverse Reaction Intermediate Nausea and Vomiting 07/28/16 Yes MEDS Medications: Current Medications Medications (Trade) Dose Ordered Sig/Porter Start Time Stop Time Status Last Admin Dose Admin Acetaminophen (Tylenol) 650 mg PRN Q4HRS PRN 07/28/16 07:15 Acetaminophen/ Hydrocodone Bitart 2 tab 2 tab 1X PREOP PRN 07/28/16 06:00 07/28/16 18:00 DC 07/28/16 06:58 2 TAB Acetaminophen/ Hydrocodone Bitart (Lortab 10/325) 1 tab PRN Q3HRS PRN 07/28/16 07:15 07/30/16 09:33 1 TAB Acetaminophen/ Hydrocodone Bitart (Lortab 7.5/325) 1 tab PRN Q3HRS PRN 07/28/16 07:15 Allopurinol (Zyloprim) 300 mg DAILY 07/28/16 12:00 07/31/16 09:32 300 MG Bisacodyl (Dulcolax Supp) 10 mg 1X PRN PRN 07/29/16 16:00 07/30/16 15:59 DC Calcium Carbonate/ Glycine (Tums) 500 mg PRN QID PRN 07/28/16 07:15 Cefazolin Sodium (Ancef 1gm Ivpb For Omni) 50 ml @ As Directed STK-MED ONCE 07/28/16 07:47 07/28/16 07:48 DC Cefazolin Sodium 3 gm/Sodium Chloride 100 ml @ 200 mls/hr Q6H 07/28/16 13:00 07/29/16 01:29 DC 07/29/16 05:14 200 MLS/HR Cefazolin Sodium/ Dextrose (Ancef 2gm Premix) 50 ml @ 100 mls/hr 1X PREOP PRN 07/28/16 06:00 07/28/16 18:00 DC 07/28/16 07:36 100 MLS/HR Cefazolin Sodium/ Sodium Chloride (Ancef/Iv Sodium Chloride 0.9% 100ml) 100 ml @ 200 mls/hr Q6H 07/28/16 07:15 07/28/16 11:10 DC Celecoxib (Celebrex) 400 mg 1X PREOP PRN 07/28/16 06:00 07/28/16 18:00 DC 07/28/16 06:58 400 MG Celecoxib 200 mg 200 mg BID 07/28/16 21:00 07/31/16 09:33 200 MG Chlordiazepoxide (Librium) 50 mg PRN Q1HR PRN 07/28/16 12:45 Desflurane 90 ml 90 ml STK-MED ONCE 07/28/16 09:45 07/28/16 09:46 DC Dexamethasone Sodium Phosphate (Decadron) 20 mg STK-MED ONCE 07/28/16 07:07 07/28/16 07:08 DC Dextrose 12.5 gm 12.5 gm PRN Q15MIN PRN 07/28/16 07:15 Dextrose/Sodium Chloride (Iv D5% - 1/2 NS) 1,000 ml @ 100 mls/hr Q10H 07/28/16 07:09 07/29/16 15:41 DC 07/28/16 11:43 100 MLS/HR Diphenhydramine HCl (Benadryl) 25 mg PRN Q6HRS PRN 07/28/16 07:15 Famotidine 20 mg 20 mg STK-MED ONCE 07/28/16 07:07 07/28/16 07:08 DC Fentanyl Citrate (Fentanyl 2ml Vial) 50 mcg PRN Q1HR PRN 07/28/16 07:15 07/28/16 11:42 50 MCG Ferrous Sulfate (Feosol) 325 mg BIDWMEALS 07/28/16 17:00 07/31/16 09:33 325 MG Glycopyrrolate (Robinul) 1 mg STK-MED ONCE 07/28/16 08:59 07/28/16 09:00 DC Hydralazine HCl (Apresoline) 20 mg STK-MED ONCE 07/28/16 08:16 07/28/16 08:17 DC Hydromorphone HCl (Dilaudid) 0.5 mg PRN Q10MIN PRN 07/28/16 07:00 07/29/16 06:59 DC Insulin Detemir (Levemir) 25 units QHS 07/29/16 21:00 07/29/16 21:16 DC Labetalol HCl (Normodyne) 20 mg STK-MED ONCE 07/28/16 08:01 07/28/16 08:02 DC Lactated Ringer's (Iv Lactated Ringers) 1,000 ml @ 30 mls/hr Q24H 07/28/16 07:00 07/28/16 18:59 DC 07/28/16 06:57 30 MLS/HR Lidocaine HCl (Lidocaine HCl 2% Abboject) 100 mg STK-MED ONCE 07/28/16 07:06 07/28/16 07:07 DC Losartan Potassium (Cozaar) 50 mg DAILY 07/28/16 09:00 07/31/16 09:35 50 MG Magnesium Hydroxide (Milk Of Magnesia) 2,400 mg 1X PRN PRN 07/29/16 06:00 07/30/16 05:59 DC Metoclopramide HCl (Reglan) 10 mg PRN Q4HRS PRN 07/28/16 07:15 Morphine Sulfate 10 mg STK-MED ONCE 07/28/16 07:51 07/28/16 07:52 DC Morphine Sulfate 1 mg 1 mg PRN Q10MIN PRN 07/28/16 07:00 07/29/16 06:59 DC 07/28/16 10:02 2 MG Morphine Sulfate/ Ketorolac Tromethamine/ Ropivacaine/ Epinephrine HCl/ Sodium Chloride (Morphine 5mg Syringe/Toradol/ Naropin 0.5%/ Adrenalin/Iv Sodium Chloride 0.9% 100ml) 100.5 ml @ 100.5 mls/ hr 1X PERIOP ONCE 07/28/16 06:00 07/28/16 06:59 DC 07/28/16 07:54 Multivitamins (Thera M Plus) 1 tab DAILY 07/28/16 12:00 07/31/16 09:32 1 TAB Multivitamins/ Thiamine HCl/ Folic Acid/Sodium Chloride (Infuvite Adult/ Iv Sodium Chloride 0.9% 1000ml Bag) 1,011.2 ml @ 100 mls/ hr DAILY 07/28/16 13:00 07/30/16 22:59 DC 07/29/16 08:28 100 MLS/HR Neostigmine Methylsulfate 5 mg STK-MED ONCE 07/28/16 08:59 07/28/16 09:00 DC Non-Formulary Medication 2.5 mg DAILY 07/28/16 09:00 07/28/16 09:00 DC Non-Formulary Medication 2 applic 2 applic DAILY 07/28/16 09:00 07/28/16 11:21 DC Ondansetron HCl (Zofran) 4 mg STK-MED ONCE 07/28/16 09:00 07/28/16 09:01 DC Oxycodone/ Acetaminophen (Percocet 5/325) 1 tab PRN Q3HRS PRN 07/28/16 07:15 Oxycodone/ Acetaminophen (Percocet 7.5/ 325) 1 tab PRN Q3HRS PRN 07/28/16 07:15 07/31/16 12:44 1 TAB Phenylephrine HCl 1 mg STK-MED ONCE 07/28/16 07:53 07/28/16 07:54 DC Prochlorperazine Edisylate (Compazine) 10 mg PRN Q4HRS PRN 07/28/16 07:15 Prochlorperazine Edisylate 5 mg 5 mg PACU PRN PRN 07/28/16 07:00 07/29/16 06:59 DC Prochlorperazine Maleate (Compazine) 10 mg PRN Q4HRS PRN 07/28/16 07:15 Propofol (Diprivan) 20 ml @ As Directed STK-MED ONCE 07/28/16 07:07 07/28/16 07:08 DC Rivaroxaban (Xarelto) 20 mg DAILY 07/29/16 09:00 07/31/16 09:32 20 MG Rocuronium [place] (Zemuron) 50 mg STK-MED ONCE 07/28/16 07:06 07/28/16 07:07 DC Senna/Docusate Sodium (Senna Plus) 1 tab DAILY 07/28/16 12:00 07/31/16 09:33 1 TAB Sodium Chloride (Normal Saline Flush) 10 ml QSHIFT PRN 07/28/16 07:15 Sodium Chloride (Sodium Chloride) 50 ml STK-MED ONCE 07/28/16 07:51 07/28/16 07:52 DC Tramadol HCl (Ultram) 100 mg PRN Q3HRS PRN 07/28/16 07:15 Zolpidem Tartrate (Ambien) 5 mg PRN QHS PRN 07/28/16 07:15 LAB Lab: Laboratory Tests Test 07/31/16 07:00 Hemoglobin 13.5g/dL (13.0-17.5) Hematocrit 40.9% (39.0-53.0) Mean Corpuscular Hemoglobin Concent 33g/dL (31-37) Prothrombin Time 13.7SEC (11.7-14.0) Prothromb Time International Ratio 1.1 (0.8-1.1) APPLPATRICIO MD Jul 31, 2016 14:52
[2016-07-31 15:25] VITALS: BP 137/75
== END 2016-07-31 16:00 | disposition home or self-care (01) | DRG 470 ==
LOC: OPSVCIP 05:42 → 4 SOUTHEST 11:02
PROVIDERS: ADMIT Orthopaedic Surgery Sports Medicine; ATTEND Orthopaedic Surgery Sports Medicine
PROC: 5A09357 Assistance with Respiratory Ventilation, Less than 24 Consecutive Hours, Continuous Positive Airway Pressure (ICD-10-PCS; 2016-07-28)
PROC: 0SRD0J9 Replacement of Left Knee Joint with Synthetic Substitute, Cemented, Open Approach (ICD-10-PCS; principal; 2016-07-28 07:30)
DX: M17.12 Unilateral primary osteoarthritis, left knee (principal); F17.210 Nicotine dependence, cigarettes, uncomplicated; N40.0 Benign prostatic hyperplasia without lower urinary tract symptoms; M10.9 Gout, unspecified; I10 Essential (primary) hypertension; Z79.01 Long term (current) use of anticoagulants; Z82.49 Family history of ischemic heart disease and other diseases of the circulatory system; Z83.3 Family history of diabetes mellitus; Z86.718 Personal history of other venous thrombosis and embolism; Z91.013 Allergy to seafood; Z79.899 Other long term (current) drug therapy
CPT/HCPCS: 36415; 73560; 85014; 85018; 85610; 86850; 86900; 86901; 88305; 88311; 94660; J0171; J0360; J0690; J1100; J1815; J1885; J2270; J2370; J2405; J2704; J2710; J2795; J3010; J3490; J7030; J7120; S0028; 97116; 97150; 97530; 97535; C1769

== ENCOUNTER → 2016-10-01 | Outpatient (CLI) | payer BC ==
[2016-07-30 09:30] VITALS: BP 154/86
[~2016-10-01] MED LIST changes: +OXYC-327 PO
--- NOTE | 2016-10-01 11:13 | RAD ---
Bone length study total of 3 AP views of the right lower extremity Indications: Preoperative evaluation. Osteoarthritis and right knee pain. Findings: 3 AP views of the right lower extremity were performed with lateral skin metallic markers. No acute fracture or osteolytic process is seen. There is medial subluxation of the femur with respect to the tibia of 10 mm. There is severe joint space narrowing and prominent spurring and subchondral sclerosis of the medial and lateral tibiofemoral joint compartments with [id number] interface. IMPRESSION: Severe primary degenerative osteoarthritis of the medial and lateral tibiofemoral joint compartments of the right knee.
--- NOTE | 2016-10-01 16:02 | RAD ---
MRI study of the right knee without contrast Clinical indications: Chronic right knee pain. Wang & Nephew protocol. Preoperative study. TECHNIQUE: Noncontrast MRI sequences of the right knee were performed in the sagittal and axial planes using the Wang and Nephew protocol. FINDINGS: The posterior cruciate ligament is intact. An intact anterior cruciate ligament is not identified. The quadriceps and patellar tendons are intact. There is a degenerative tear involving the superior articular surface of the anterior body of the lateral meniscus which extends into the anterior horn. There is a tear and truncation of the inner articular edge of the anterior horn of the lateral meniscus. There is degeneration of the root ligament of the posterior horn of the lateral meniscus. There is severe degeneration and attenuation of the posterior horn and body of the medial meniscus. In fact, no body of the medial meniscus is identified. The finding could be secondary to previous partial meniscectomy. There is degeneration of the root ligament of the posterior horn of the medial meniscus. There is attenuation of the medial aspect of the anterior horn of the medial meniscus. There is severe degenerative osteoarthritis with spurring and loss of the articular cartilage resulting in [id number] interface of the medial tibiofemoral joint compartment. A similar finding is seen involving the lateral tibiofemoral joint compartment. 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 There is severe chondromalacia patellae especially involving the lateral patellar facet. These findings result in [id number] interface of the lateral aspect of the patellofemoral joint compartment There is mild lateral subluxation of the patella. The trochlear groove to tibial tubercle distance is 29 mm which is abnormal and this may result in abnormal biomechanics of the patellofemoral joint. The medial and lateral retinacular ligaments are intact. No distended Nuñez's cyst is seen. Evaluation of the collateral ligaments is difficult without coronal sequences. The popliteus tendon is intact. A moderate-sized knee joint effusion is seen. No fracture or marrow infiltrative process is seen. No muscle edema is evident. IMPRESSION: Severe tricompartmental osteoarthritis of the right knee with [id number] interface. Abnormal trochlear groove to tibial tubercle distance which may result in abnormal biomechanics of the patellofemoral joint. Intact ACL is not identified. Therefore, there may be chronic atrophy or chronic tear of the ACL. Degeneration and tears of the medial and lateral menisci as discussed above. There is loss of the body and large portion of the posterior horn of the medial meniscus. This could be secondary to partial meniscectomy if there is a history of such. Electronically signed by: Uli Jimenez MD (10/01/2016 3:58 PM)
== END | disposition home or self-care (01) ==
LOC: RAD 09:24
PROVIDERS: ATTEND Orthopaedic Surgery Sports Medicine
DX: Z01.818 Encounter for other preprocedural examination (principal); M25.562 Pain in left knee; M17.11 Unilateral primary osteoarthritis, right knee
CPT/HCPCS: 73721; 77073

== ENCOUNTER → 2016-10-06 | Outpatient (CLI) | payer BC ==
[2016-07-30 09:30] VITALS: BP 154/86
[2016-10-06 15:03] LABS: BASO # 0.1 x10^3/uL (0.0-0.2); BASO % 1 % (0-3); EOS % 1 % (0-3); HEMOGLOBIN 16.2 g/dL (13.0-17.5); LYMPH # 2.5 x10^3/uL (1.0-4.8); LYMPH % 33 % (24-48); MEAN CORPUSCULAR HEMOGLOBIN 33 pg (25-35); MEAN CORPUSCULAR HGB CONC 34 g/dL (31-37); MEAN CORPUSCULAR VOLUME 98 fL (79-100); MONO % 6 % (0-9); NEUT % 59 % (31-73); PLATELET COUNT 205 x10^3/uL (140-400); RED BLOOD COUNT 4.92 x10^6/uL (4.30-5.70); RED CELL DISTRIBUTION WIDTH 16.4 % (11.5-14.5); WHITE BLOOD COUNT 7.6 x10^3/uL (4.0-11.0)
[2016-10-06 15:13] LABS: ALBUMIN 3.7 g/dL (3.4-5.0); CALCIUM 8.5 mg/dL (8.5-10.1); CREATININE 1.1 mg/dL (0.7-1.3); GFR 68.8
[2016-10-06 15:28] LABS: INR 1.7 (0.8-1.1)
[2016-10-06 16:15] LABS: BILIRUBIN,URINE NEGATIVE (NEG); GLUCOSE,URINE NEGATIVE (NEG); NITRITE,URINE NEGATIVE (NEG); PH,URINE 6.5; PROTEIN,URINE NEGATIVE (NEG-TRACE)
[2016-10-06 16:40] LABS: BACTERIA,URINE FEW /HPF (0-FEW); RBC,URINE 0 /HPF (0-2); SQUAMOUS EPITHELIAL CELL,UR OCC /LPF; WBC,URINE OCC /HPF (0-4)
== END | disposition home or self-care (01) ==
LOC: SURGPAT 14:20
PROVIDERS: ATTEND Orthopaedic Surgery Sports Medicine
DX: M17.11 Unilateral primary osteoarthritis, right knee (principal)
CPT/HCPCS: 36415; 80048; 81001; 82040; 83036; 85027; 85610; 85651; 85730; 87641